=== PATIENT | male | born 1960 | race Caucasian/White ===

== ENCOUNTER → 2020-07-18 | Outpatient (REF) | payer SELFPAY | LOC: M LAB REF 08:48 | PROVIDERS: ATTEND Dermatology | DX: L90.5 Scar conditions and fibrosis of skin (principal) ==

== ENCOUNTER → 2023-07-26 | Outpatient (REF) | payer MEDICAID | LOC: M SFHCDERM 17:39 | PROVIDERS: ATTEND Physician Assistant | DX: L72.3 Sebaceous cyst (principal) ==